=== PATIENT | male | born 1995 | race Caucasian/White ===

== ENCOUNTER 2021-05-28 20:01 | Inpatient (IN) | payer OTHER, SELFPAY ==
[2021-05-28 20:08] VITALS: BP 116/66; PULSE 93; RESP 16; TEMP 36.7; O2SAT 100; BMI 19.5
--- NOTE | 2021-05-28 20:20 | ED_ITS ---
HPI - Psych General Chief Complaint: Psychiatric Symptoms Stated Complaint: SI Time Seen by Provider: 05/28/21 20:20 Source: patient Mode of arrival: ambulatory Limitations: no limitations History of Present Illness HPI Narrative: This is a 25-year-old male with no known medical history presenting to the emergency department via ambulance and a Section 12 for suicidal ideation with attempt to hang himself. Patient was found by his mom and sister at home with a wire tied around his neck, he tells me that he just can not take it anymore. He tells me ?everything I have worked for has been taken away ?, he tells me that COVID has been messing him up. What triggered this today is that patient got a new job in [place], patient resides in [place] and he was unable to get a ride to the new job. He tells me that he has been planning out the suicide attempt for weeks, this is not his 1st attempt, he tells me he had 1 a few years ago. He denies visual, auditory and tactile hallucinations at this time. He tells me he smokes marijuana but denies all other drugs, alcohol and tobacco. He is not currently taking medications. He is not followed by psychiatrist or therapist. He denies homicidal ideation. He has no medical complaints at this time. MD complaint: suicidal ideation, feels depressed and anxiety Onset (ago): week(s) (2) Duration: constant History of same: Yes Relieving factors: none Exacerbating factors: none Context: significant life stressor (COVID, new job ) Associated psychiatric symptoms: depression, suicidal ideation (w/ attempt ) and racing thoughts Associated symptoms: denies other symptoms Treatments prior to arrival: placed on mental health hold (Patient sectioned by N in the community.) If self harm: admits thoughts of self harm, has plan and has acted on plan (tried choking/hanging himself w/ wire) Related Data Allergies Allergy/AdvReac Type Severity Reaction Status Date / Time No Known Allergies Allergy Unverified 01/10/20 16:36 Review of Systems Verdana 4l Review of Systems: Verdana 4d Verdana 4d Constitutional : No Fever, No Chills ENT/Mouth : No Ear Pain, No Nasal Congestion, No sore throat Eyes: No Eye Pain, No Swelling, No Redness Cardiovascular : No Chest Pain, No SOB Respiratory : No Cough, No Sputum, No Dyspnea GastrointestinalGastrointestinal : No Nausea, No Vomiting, No Diarrhea, No Hematochezia, No Melena Genitourinary : No Dysuria, No Urinary Frequency, No Hematuria Musculoskeletal : No Myalgias Skin : No Skin Lesions, No rash Neuro : No Weakness, No Numbness, No Paresthesias, No Dizziness, No Headache Psych : positive Anxiety, positive Depression, positive SI, No HI All other systems reviewed and are negative Yes all other systems are reviewed and are negative [facility] Past Medical History Attestation statement: The following information was validated with the patient. 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 Oriented X3.? No acute distress.?+ patient appears sad, is soft-spoken, and will not make eye contact. Head: Normocephalic, atraumatic, no step-offs or deformities Eyes: Pupils equal, round and reactive to light.? ENT: Pharynx normal.? Neck: Normal inspection.? Neck supple.? CVS: Normal heart rate and rhythm.? Pulses normal.? Respiratory: No respiratory distress.? Breath sounds normal.? Abdomen: Soft and nontender.? Skin: Skin warm and dry.? Normal skin color.? Normal skin turgor.? Extremities: No lower extremity edema.? No calf ttp. 5/5 strength to bilateral upper and lower extremities Back: No midline tenderness, no C-spine tenderness, full range of motion, no CVA tenderness bilaterally Neuro: Oriented X 3.? No motor deficit.? No sensory deficit. Cranial nerves 2- 12 intact. Course Reevaluation(s) Reevaluation #1: CBC within normal limits, no acute electrolyte abnormalities. COVID negative. Ethanol negative. At this time urine toxicology pending. Patient will be placed in physician observation to allow for evaluation by the behavioral health team. At this time patient is, cooperative no acute distress. Will continue to monitor. Time: 21:30 MDM - Psych MDM Narrative Medical decision making narrative: 2012 25 yo m no pmhx presents to ED s/p suicide attempt by choking himself with wires. He was found at by his mom and sister. Tells me he was planning this for weeks. Previous attempt in the past. Is not followed by psychiatrist or therapist. Physical exam benign, no signs of evident trauma to the neck. Plan at this time is to obtain basic labs, COVID, drug screen, BHN consult. Patient will be placed on close observation as patient is high risk. Medical Records Attestation: I reviewed the patient's medical records. Lab Data Attestation: I reviewed the patient's lab results. Result diagrams: 05/28/21 20:44 05/28/21 20:44 Labs: Lab Results 05/28/21 05/28/21 05/28/21 Range/Units 20:44 20:44 20:44 WBC 7.5 (4.8-10.8) X10*3/uL RBC 4.83 (4.60-5.80) X10*6/uL Hgb 14.5 (14.0-18.0) g/dl Hct 44.3 (42.0-52.0) % MCV 91.7 (80.0-98.0) fL MCH 30.0 (27.0-33.0) pg MCHC 32.7 (31.0-36.0) g/dl RDW 12.1 (11.0-16.0) % Plt Count 190 (160-400) X10*3/uL MPV 11.0 (9.4-12.4) fL Immature Gran % (Auto) 0.1 (0.0-0.4) % Neut % (Auto) 69.7 (45-73) % Lymph % (Auto) 23.9 (20-40) % Kendall % (Auto) 4.7 (2-11) % Eos % (Auto) 1.2 (0-4) % Baso % (Auto) 0.4 (0-2) % Lymph # (Auto) 1.8 (1.2-4.9) X10*3/uL Kendall # (Auto) 0.4 (0.1-1.2) X10*3/uL Eos # (Auto) 0.1 (0.0-0.4) X10*3/uL Baso # (Auto) 0.0 (0.0-0.2) X10*3/uL Abs Immat Gran (auto) 0.01 (0.00-0.03) X10*3/uL Absolute Neuts (auto) 5.2 (2.0-8.3) x10*3/uL Absolute Nucleated RBC 0.000 (0.0-0.012) X10*3/uL Nucleated RBC % (auto) 0.0 (0.0-0.2) /100WBC Sodium 141 (135-145) mmol/L Potassium 3.8 (3.3-5.1) mmol/L Chloride 109 H (96-108) mmol/L Carbon Dioxide 26 (22-29) mmol/L Anion Gap 10 L (12-20) BUN 6 L (9-16) mg/dL Creatinine 0.88 (0.5-1.4) mg/dL Estim Creat Clear Calc 117.2 Estimated GFR > 60 Random Glucose 85 (60-115) mg/dL Calcium 9.2 (8.4-10.2) mg/dL Total Bilirubin 0.5 (0.0-1.0) mg/dL AST 16 (5-37) U/L ALT 8 (0-40) U/L Alkaline Phosphatase 36 L (39-117) U/L Total Protein 6.6 (6.5-8.0) g/dL Albumin 4.2 (3.5-5.0) g/dL Ethyl Alcohol mg/dL COVID-19 (GABRIELA) Negative (Negative) COVID-19 Clin Com See Note 05/28/21 Range/Units 20:44 WBC (4.8-10.8) X10*3/uL RBC (4.60-5.80) X10*6/uL Hgb (14.0-18.0) g/dl Hct (42.0-52.0) % MCV (80.0-98.0) fL MCH (27.0-33.0) pg MCHC (31.0-36.0) g/dl RDW (11.0-16.0) % Plt Count (160-400) X10*3/uL MPV (9.4-12.4) fL Immature Gran % (Auto) (0.0-0.4) % Neut % (Auto) (45-73) % Lymph % (Auto) (20-40) % Kendall % (Auto) (2-11) % Eos % (Auto) (0-4) % Baso % (Auto) (0-2) % Lymph # (Auto) (1.2-4.9) X10*3/uL Kendall # (Auto) (0.1-1.2) X10*3/uL Eos # (Auto) (0.0-0.4) X10*3/uL Baso # (Auto) (0.0-0.2) X10*3/uL Abs Immat Gran (auto) (0.00-0.03) X10*3/uL Absolute Neuts (auto) (2.0-8.3) x10*3/uL Absolute Nucleated RBC (0.0-0.012) X10*3/uL Nucleated RBC % (auto) (0.0-0.2) /100WBC Sodium (135-145) mmol/L Potassium (3.3-5.1) mmol/L Chloride (96-108) mmol/L Carbon Dioxide (22-29) mmol/L Anion Gap (12-20) BUN (9-16) mg/dL Creatinine (0.5-1.4) mg/dL Estim Creat Clear Calc Estimated GFR Random Glucose (60-115) mg/dL Calcium (8.4-10.2) mg/dL Total Bilirubin (0.0-1.0) mg/dL AST (5-37) U/L ALT (0-40) U/L Alkaline Phosphatase (39-117) U/L Total Protein (6.5-8.0) g/dL Albumin (3.5-5.0) g/dL Ethyl Alcohol < 10 mg/dL COVID-19 (GABRIELA) (Negative) COVID-19 Clin Com Critical Care Time Critical Care Time Critical Care Time: No Discharge Plan Discharge Clinical Impression: Suicide attempt, Depression Patient Disposition: Still a Patient Instructions: Help Prevent Suicide (ED), Help Prevent Suicide in Older Adults (ED), Suicide Prevention (ED) Additional Instructions: Take your medications as prescribed. If you were prescribed antibiotics today, it is important that you take your medication to their entirety, do not skip any doses, do not finish them early. Follow-up with your primary care provider this week. Return to the emergency department with new or worsening symptoms. In case of emergency call 911
[2021-05-28 20:51] LABS: MANUAL DIFF FLAG NO
[2021-05-28 20:52] LABS: Basophils Percent Auto 0.4 % (0-2); Eosinophils Absolute Auto 0.1 X10*3/uL (0.0-0.4); Eosinophils Percent Auto 1.2 % (0-4); Hematocrit 44.3 % (42.0-52.0); Hemoglobin 14.5 g/dl (14.0-18.0); Imm Gran Abs Auto 0.01 X10*3/uL (0.00-0.03); Imm Gran Pct Auto 0.1 % (0.0-0.4); Lymphocytes Absolute Auto 1.8 X10*3/uL (1.2-4.9); Lymphocytes Percent Auto 23.9 % (20-40); Mean Corpuscular HGB Conc 32.7 g/dl (31.0-36.0); Mean Corpuscular Volume 91.7 fL (80.0-98.0); Monocytes Absolute Auto 0.4 X10*3/uL (0.1-1.2); Monocytes Percent Auto 4.7 % (2-11); Neutrophils Absolute Auto 5.2 x10*3/uL (2.0-8.3); Neutrophils Percent Auto 69.7 % (45-73); Platelet Count 190 X10*3/uL (160-400); Red Blood Count 4.83 X10*6/uL (4.60-5.80); Red Cell Distribution Width 12.1 % (11.0-16.0); White Blood Count 7.5 X10*3/uL (4.8-10.8)
[2021-05-28 21:08] LABS: COVID-19 Test Negative (Negative); Ethanol < 10 mg/dL
[2021-05-28 21:12] LABS: Alanine Aminotransferase 8 U/L (0-40); Albumin Level 4.2 g/dL (3.5-5.0); Alkaline Phosphatase 36 U/L (39-117); Anion Gap 10 (12-20); Aspartate Amino Transferase 16 U/L (5-37); Bilirubin Total 0.5 mg/dL (0.0-1.0); Blood Urea Nitrogen 6 mg/dL (9-16); Calcium 9.2 mg/dL (8.4-10.2); Carbon Dioxide 26 mmol/L (22-29); Chloride 109 mmol/L (96-108); Creatinine Clr Calc Pharmacy 117.2; Estimated Glomerular Filt Rate > 60; Glucose Random 85 mg/dL (60-115); Potassium 3.8 mmol/L (3.3-5.1); Sodium 141 mmol/L (135-145); Total Protein 6.6 g/dL (6.5-8.0)
--- NOTE | 2021-05-28 21:37 | MHC.CARE ---
AYDIN called reporting that pt was seen in the community and is a bedsearch
--- NOTE | 2021-05-29 | ECG_ITS ---
Test Reason : MEDCLEARANCE Blood Pressure : / mmHG Vent. Rate : 052 BPM Atrial Rate : 052 BPM P-R Int : 134 ms QRS Dur : 110 ms QT Int : 412 ms P-R-T Axes : 058 091 078 degrees QTc Int : 383 ms Sinus bradycardia Rightward axis Early repolarization Borderline ECG When compared with ECG of 24-FEB-2008 11:13, No significant changes seen Referred By: Peyton Lott Electronically Signed By:MEGAN MARTINES
--- NOTE | 2021-05-29 05:45 | PC.NURSE ---
Patient slept through the night, no distress observed/reported, behavior appropriate, mood depressed, denied SI and SH at this time, patient is currently not on any medication, worried about his relationship with his girlfriend, patient was screened by AYDIN, disposition section 12 inpatient bed search, VSS, will continue to monitor.
[2021-05-29 06:53] VITALS: RESP 20
--- NOTE | 2021-05-29 07:19 | PC.NURSE ---
patient appears to remain asleep at present respirations are even and unlabored, patient appears in no distress
[2021-05-29 13:02] LABS: COVID-19 Test Negative (Negative); IDNOW Serial# 9DD0AD1C
--- NOTE | 2021-05-29 15:43 | PC.NURSE ---
Attempted to give report. Per jordyn nurses are involved in patient care. Plan at this time is to call back at 1600.
--- NOTE | 2021-05-29 16:02 | PC.NURSE ---
Attempted to give report. Staff unable to take report due to being involved in patient care.
--- NOTE | 2021-05-29 16:34 | PC.NURSE ---
Report given to Lester GRIMES
--- NOTE | 2021-05-29 18:05 | P.HPPS_ITS ---
HPI Date of Service: 05/29/21 Chief Complaint: suicide attempt Sources of Information: patient interviewed, chart reviewed and crisis/core team assessment reviewed HPI Subjective Notes: [place] Warning, Conditional Voluntary and 3 Day Healthcare Proxy: No Guardianship: No Medical Problems Affecting Mental Status: No Narrative: Zak is a 25 y.o. male who carries a dx of ADHD, r/o ASD, and MDD recurrent. He presented to [facility] ED on 05/28/21 via ambulance on a Section 12a due to SI and s/p SA via asphyxiation. Per ED note, pt was found by his mom and sister at home with a wire tied around his neck. 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 ED provider had documented that pt had been planning out the SA for weeks, however pt adamantly denies saying this and says it was impulsive. No current psych treatment or medication. Utox positive for cannabis.? Per Jean Carlos dow on 05/28/21, pt was evaluated by crisis mobile unit, found in the back seat of his mom?s car crying. He identified precipitating factors as feeling like a failure due to losing his job (recently hired by [employer] but unable to complete training due to not having reliable transportation). Pt disclosed hearing voices for the last month and hearing the word all the time. lead software engineer spoke with pt?s mom, who confirmed pt has been hearing voices and self isolating.? I evaluated the pt this evening and upon interview he reports long hx of depression since adolescence. Pt says his depression comes and goes and that it is ?more a seasonal thing.? Episodes of depression can last from ?a couple days, maybe a week.? Has noticed current sx of depression started about a month ago, stating ?life has just been hard? and ?its been hard to find work.? He is unvaccinated and has limited work experience, which makes it difficult to obtain gainful employment. Sx of depression include not wanting to get out of bed. Says his appetite is good and he sleeps 9-10 hours at night. Daytime energy is low, ?some days even though I slept I?m still tired.? Pt says he struggles with some anxiety, ?I tend to overthink a lot? and he feels overwhelmed. Denies panic attacks. Denies anger. Currently denies SI and says ?I dont wanna .? States his suicidal ideation is a ?feeling that randomly pops up out of nowhere? and he feels he hit ?rock bottom? and was ?in a dark place? prior to crisis eval. For his most recent SA, pt states he pulled a wire around his neck ?to the extent that it was constricting my breathing a little? and his mom walked in and stopped him. Denies self harming behaviors. Says ?I know what I did was wrong.? Pt is currently denying psychotic sx. No hx of manic or hypomanic episodes endorsed.? I spoke with pt?s mom who reports pt has a hx of ADHD and states she believes pt is on the autism spectrum. Says at age 20 pt?s PCP also inquired if he was diagnosed with autism, however he has not had formal testing and has not hx of special education services. His mom reports she first noticed pt?s depression in adolescence and says ?his dad has been in and out of his life, he went to senior living a couple times when he was growing up, that?s jr when things started with the counseling and stuff.? Says pt has lost ?a lot of weight? in the past year, she worries about intentional restricting and says pt was overweight in childhood. States he can be verbally aggressive but denies physical aggression or property destruction.? She confirms he does sleep but will go to bed late. Has lack of daytime structure, stays in his room and plays xbox. Says he is still dependent on her and his mom has to help him with appointments, talking on the phone, and organizational tasks. Pt does not like going into stores or talking with people, he is not social at family events. Says ?he wont even buy his own clothes.? Hy giene is adequate. Per mom, yesterday pt missed work because he didnt have a ride and since it is a training week, ?if he misses that?s its and it was his dream job. That?s really what set him off.? She denies pt having hx of self harm. Says pt disclosed to her that in the past month he has been hearing ?the word ? in his head. Otherwise, denies positive sx of psychosis.? Past Psychiatric History: -Per chart, pt was diagnosed with ADHD and Agoraphobia in childhood -Hx of OP therapy when he was in the tenth grade. -Pt reports hx of previous SI at age 19 or 20, had a plan to hang himself and says ?it randomly hit me, what the hell am I doing?? Also reports hx of suicide attempt 5-6 yrs ago by ?overdrinking,? tried to drink himself to , wanted to ?see how far I could really take it.? -Past med trials: adderall Medical Evaluation Reviewed: Yes [facility] Narrative: -Hx of GERD Family History: -Denies Social History: -Pt lives at home with mother (unemployed) and sister (age 9 or 10). Supports: older brother in [place], also says he has one friend he talks to. Limited social supports. Does not talk to bio dad (was in/out of senior living growing up). -Dropped out of high school senior yr due to being short credit, says he ?fooled around? and his grades ?dropped dramatically,? obtained his GED. 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 Says prior to the pandemic he worked for a year in [employer]. States he was hoping to use the money from this job to pay for college and he would like to study psychology. Interests include drawing, music, and working on cars. 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 -Cannabis: daily use, has his own marijuana plant Trauma History: -Per pt?s mom, his dad was in/ out of senior living growing up. Pt started OP therapy in high school, says he ?felt like I never fit in? and ?everybody was always just pointing and laughing at me,? says he was an ?outkast.? Diagnostics Vital Signs (24Hr): Vital Signs - 24 hr 05/28/21 20:08 05/29/21 06:53 Temperature 98.1 F Pulse Rate 93 Respiratory Rate 16 20 Blood Pressure 116/66 Pulse Oximetry 100 BMI result Body Mass Index 19.5 Labs Results: 05/28/21 20:44 05/28/21 20:44 Labs: Laboratory Results - last 48 hr 05/28/21 05/28/21 05/28/21 20:44 20:44 20:44 WBC 7.5 RBC 4.83 Hgb 14.5 Hct 44.3 MCV 91.7 MCH 30.0 MCHC 32.7 RDW 12.1 Plt Count 190 MPV 11.0 Immature Gran % (Auto) 0.1 Neut % (Auto) 69.7 Lymph % (Auto) 23.9 Brule % (Auto) 4.7 Eos % (Auto) 1.2 Baso % (Auto) 0.4 Lymph # (Auto) 1.8 Brule # (Auto) 0.4 Eos # (Auto) 0.1 Baso # (Auto) 0.0 Abs Immat Gran (auto) 0.01 Absolute Neuts (auto) 5.2 Absolute Nucleated RBC 0.000 Nucleated RBC % (auto) 0.0 Sodium 141 Potassium 3.8 Chloride 109 H Carbon Dioxide 26 Anion Gap 10 L BUN 6 L Creatinine 0.88 Estim Creat Clear Calc 117.2 Estimated GFR > 60 Random Glucose 85 Calcium 9.2 Total Bilirubin 0.5 AST 16 ALT 8 Alkaline Phosphatase 36 L Total Protein 6.6 Albumin 4.2 Ethyl Alcohol COVID-19 (GABRIELA) Negative COVID-19 [employer] Com See Note 05/28/21 05/29/21 20:44 12:36 WBC RBC Hgb Hct MCV MCH MCHC RDW Plt Count MPV Immature Gran % (Auto) Neut % (Auto) Lymph % (Auto) Brule % (Auto) Eos % (Auto) Baso % (Auto) Lymph # (Auto) Brule # (Auto) Eos # (Auto) Baso # (Auto) Abs Immat Gran (auto) Absolute Neuts (auto) Absolute Nucleated RBC Nucleated RBC % (auto) Sodium Potassium Chloride Carbon Dioxide Anion Gap BUN Creatinine Estim Creat Clear Calc Estimated GFR Random Glucose Calcium Total Bilirubin AST ALT Alkaline Phosphatase Total Protein Albumin Ethyl Alcohol < 10 COVID-19 (GABRIELA) Negative COVID-19 Clin Com See Note Meds/Allergies Meds Home Medications Acetaminophen (Acetaminophen 325 Mg Tablet) 650 mg PO Q6H PRN PRN Reason: Headache/Pain Mild Scale (1-3) Al Hydroxide/Mg Hydroxide (Magnesium Hydrox/Alum Hydrox 30 Ml Oral.Susp) 30 ml PO Q6H PRN PRN Reason: Heartburn/Nausea Hydroxyzine HCl (Hydroxyzine Hcl 25 Mg Tablet) 25 mg PO BEDTIME PRN PRN Reason: Anxiety Magnesium Hydroxide (Milk Of Magnesia 30 Ml Oral.Susp) 30 ml PO DAILY PRN PRN Reason: Constipation Trazodone HCl (Trazodone Hcl 50 Mg Tablet) 50 mg PO BEDTIME PRN PRN Reason: Insomnia Allergies Allergies Allergy/AdvReac Type Severity Reaction Status Date / Time No Known Allergies Allergy Unverified 01/10/20 16:36 Mental Status Exam Mental Status Exam Narrative: A&O. Found lying down in bed in hospital attire, not malodorous, glasses, thin body habitus. Poor eye contact, attentive. No Tics or Tremors. No abnormal involuntary movements. Calm, cooperative, engaged, however pt appears to be minimizing sx and is not a reliable political reporter. Non-pressured speech, spontaneous with regular rate and rhythm, normal volume and prosody. No prolonged speech latency or dysarthria. Mood is ?depressed,? affect is anxious, embarrassed. Currently denies SI/SIB/HI upon inquiry. Currently denies A/VH or delusional thought content. Thoughts are at times evasive but overall organized and coherent. No known cognitive or memory impairment. Insight/ Judgment limited but adequate. Assessment & Plan Assessment & Plan (1) MDD (major depressive disorder), recurrent, severe, with psychosis: Status: Acute Code(s): F33.3 - Major depressive disorder, recurrent, severe with psychotic symptoms Plan Zak is a 25 y.o. male who carries a dx of ADHD, r/o ASD, and MDD recurrent. He presented to [facility] ED on 05/28/21 via ambulance on a Section 12a due to SI and s/p SA via asphyxiation. Has hx of previous SA, depression, and suicidal ideation. No current OP psych sx. Denies hx of IPLOC, PHP, or CCS. No alcohol use, substance use positive for daily cannabis. Pt had reported AH x one month, hearing the word . Plan: Pt is currently refusing medication trial for depression, says ?I dont condone in medication.? Reports when he was younger he took adderall and ?I didnt like it all.? Pt is also apprehensive about re-starting OP therapy, says ?I dont feel comfortable talking about my problems with people.? He is currently denying psychotic sx, however per crisis eval pt had disclosed AH x one month. Pt's mom would like pt to obtain testing for autism spectrum disorder in OP setting. Will continue engagement with pt and monitor for psychotic sx. Monitor response to medications. Monitor for safety in the milieu. Discharge on stabilization. Patient seen. Chart reviewed. Discussed with team. Obtain collateral contact info?as needed Patient educated on: medication risk/benefits and therapeutic strategies Informed Consent: understands Reason for continued inpatient stay Substantial Risk for: harm to self, rapid decompensation and med/psych decompensation
--- NOTE | 2021-05-29 18:50 | PC.ADMIT ---
PT admitted to unit from [facility] with a diagnosis of unspecified schizophrenia and other psychotic disorder on a CV after attempting to hang himself at home. PT reports that his mother found him while he was making his attempt and that he feels ashamed for attempting to harm himself. PT is calm and cooperative with admission process, guarded and tearful during conversation. Per crisis eval pt reported SI and AH in the last month and that he was hearing the word everywhere. PT states he has a supportive family but is currently angry with them and does not want anyone other than his brother to have information about his stay here. PT reports he has no providers and does not take any medications. PT denies previous psychiatric admissions. PT is covid negative. 15 minute safety checks initiated for safety.
[2021-05-29 18:55] VITALS: BP 133/73; PULSE 62; RESP 16; TEMP 36.5; O2SAT 98
[2021-05-30 08:00] VITALS: BP 111/58; PULSE 60; RESP 15; TEMP 36.5; O2SAT 99
--- NOTE | 2021-05-30 08:01 | P.PNPSI_ITS ---
Subjective Subjective Reason For Visit: suicide attempt Diagnostics Vital Signs (24Hr): Vital Signs - 24 hr 05/29/21 18:55 Temperature 97.7 F Pulse Rate 62 Respiratory Rate 16 Blood Pressure 133/73 Pulse Oximetry 98 BMI result Verdana 4 Body Mass Index Verdana 4 19.5 Verdana 4 Verdana 4 Labs Results: 05/28/21 20:44 05/28/21 20:44 Labs: Laboratory Results - last 48 hr 05/28/21 05/28/21 05/28/21 20:44 20:44 20:44 WBC 7.5 RBC 4.83 Hgb 14.5 Hct 44.3 MCV 91.7 MCH 30.0 MCHC 32.7 RDW 12.1 Plt Count 190 MPV 11.0 Immature Gran % (Auto) 0.1 Neut % (Auto) 69.7 Lymph % (Auto) 23.9 [place] % (Auto) 4.7 Eos % (Auto) 1.2 Baso % (Auto) 0.4 Lymph # (Auto) 1.8 [place] # (Auto) 0.4 Eos # (Auto) 0.1 Baso # (Auto) 0.0 Abs Immat Gran (auto) 0.01 Absolute Neuts (auto) 5.2 Absolute Nucleated RBC 0.000 Nucleated RBC % (auto) 0.0 Sodium 141 Potassium 3.8 Chloride 109 H Carbon Dioxide 26 Anion Gap 10 L BUN 6 L Creatinine 0.88 Estim Creat Clear Calc 117.2 Estimated GFR > 60 Random Glucose 85 Calcium 9.2 Total Bilirubin 0.5 AST 16 ALT 8 Alkaline Phosphatase 36 L Total Protein 6.6 Albumin 4.2 Ethyl Alcohol COVID-19 ([facility]) Negative COVID-19 Clin Com See Note 05/28/21 05/29/21 20:44 12:36 WBC RBC Hgb Hct MCV MCH MCHC RDW Plt Count MPV Immature Gran % (Auto) Neut % (Auto) Lymph % (Auto) [place] % (Auto) Eos % (Auto) Baso % (Auto) Lymph # (Auto) [place] # (Auto) Eos # (Auto) Baso # (Auto) Abs Immat Gran (auto) Absolute Neuts (auto) Absolute Nucleated RBC Nucleated RBC % (auto) Sodium Potassium Chloride Carbon Dioxide Anion Gap BUN Creatinine Estim Creat Clear Calc Estimated GFR Random Glucose Calcium Total Bilirubin AST ALT Alkaline Phosphatase Total Protein Albumin Ethyl Alcohol < 10 COVID-19 ([facility]ELA) Negative COVID-19 Clin Com See Note Medications Medications Current Medications Acetaminophen (Acetaminophen 325 Mg Tablet) 650 mg PO Q6H PRN PRN Reason: Headache/Pain Mild Scale (1-3) Al Hydroxide/Mg Hydroxide (Magnesium Hydrox/Alum Hydrox 30 Ml Oral.Susp) 30 ml PO Q6H PRN PRN Reason: Heartburn/Nausea Hydroxyzine HCl (Hydroxyzine Hcl 25 Mg Tablet) 25 mg PO BEDTIME PRN PRN Reason: Anxiety Magnesium Hydroxide (Milk Of Magnesia 30 Ml Oral.Susp) 30 ml PO DAILY PRN PRN Reason: Constipation Trazodone HCl (Trazodone Hcl 50 Mg Tablet) 50 mg PO BEDTIME PRN PRN Reason: Insomnia Allergies Allergies Allergy/AdvReac Type Severity Reaction Status Date / Time No Known Allergies Allergy Unverified 01/10/20 16:36 Assessment & Plan I spent minutes with the patient and/or on the patient floor today, greater than?50% of which was spent counseling/coordinating care.
--- NOTE | 2021-05-30 17:27 | P.HPPS_ITS ---
HPI Date of Service: 05/30/21 Chief Complaint: suicide attempt Sources of Information: patient interviewed, chart reviewed and crisis/core team assessment reviewed HPI Subjective Notes: [place] Warning, Conditional Voluntary and 3 Day Healthcare Proxy: No Guardianship: No Medical Problems Affecting Mental Status: No Narrative: 25 single male was brought to ED after attempted hanging . His cousin contacted crisis. Pt reports he has been depressed > 1 year after he lost his job in Senior [employer] in 2019 related to COVID. Unable to get another job due tue to vaccine refusal. He states he started to notice talk of in the media/people but clarifies he did not experience AH. He did not want to come to hospital and is upset with family for sending him here despite his statements that he had no intent or SI after the attempted cord tying round neck. I dont want to talk to my mom or anyone . He states it was an impulse. Continues to refuse vaccine or meds. Substance abuse: Some ETOH use but regular THC use. Denies other drug use. Past Psychiatric History: -Per chart, pt was diagnosed with ADHD and Agoraphobia in childhood. Adderall made him feel weird. -Hx of OP therapy when he was in the tenth grade. -Pt reports hx of previous SI at age 19 or 20, had a plan to hang himself and says ?it randomly hit me, what the hell am I doing?? Also reports hx of suicide attempt 5-6 yrs ago by ?overdrinking,? tried to drink himself to , wanted to ?see how far I could really take it.? -Past med trials: adderall Medical Evaluation Reviewed: Yes PMFSH Family History: -Denies Social History: -Pt lives at home with mother (unemployed) and sister (age 7 or 8). Supports: older brother in [place], also says he has one friend he talks to. Limited social supports. Does not talk to bio dad (was in/out of longterm growing up). -Dropped out of high school senior yr due to being short credit, says he ?fooled around? and his grades ?dropped dramatically,? obtained his GED. 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 Says prior to the pa ndemic he worked for a year in [employer] (formerly [employer]). States he was hoping to use the money from this job to pay for college and he would like to study psychology. Interests include drawing, music, and working on cars. Substance History: Regular THC use. Some ETOH use Trauma History: -Per pt?s mom, his dad was in/ out of longterm growing up. Pt started OP therapy in high school, says he ?felt like I never fit in? and ?everybody was always just pointing and laughing at me,? says he was an ?outkast.? Diagnostics Vital Signs (24Hr): Vital Signs - 24 hr 05/29/21 18:55 05/30/21 08:00 Temperature 97.7 F 97.7 F Pulse Rate 62 60 Respiratory Rate 16 15 Blood Pressure 133/73 111/58 L Pulse Oximetry 98 99 BMI result Verdana 4 Body Mass Index Verdana 4 19.5 [place] 4 Verdana 4 Labs Results: 05/28/21 20:44 05/28/21 20:44 Labs: Laboratory Results - last 48 hr 05/28/21 05/28/21 05/28/21 20:44 20:44 20:44 WBC 7.5 RBC 4.83 Hgb 14.5 Hct 44.3 MCV 91.7 MCH 30.0 MCHC 32.7 RDW 12.1 Plt Count 190 MPV 11.0 Immature Gran % (Auto) 0.1 Neut % (Auto) 69.7 Lymph % (Auto) 23.9 [place] % (Auto) 4.7 Eos % (Auto) 1.2 Baso % (Auto) 0.4 Lymph # (Auto) 1.8 [place] # (Auto) 0.4 Eos # (Auto) 0.1 Baso # (Auto) 0.0 Abs Immat Gran (auto) 0.01 Absolute Neuts (auto) 5.2 Absolute Nucleated RBC 0.000 Nucleated RBC % (auto) 0.0 Sodium 141 Potassium 3.8 Chloride 109 H Carbon Dioxide 26 Anion Gap 10 L BUN 6 L Creatinine 0.88 Estim Creat Clear Calc 117.2 Estimated GFR > 60 Random Glucose 85 Calcium 9.2 Total Bilirubin 0.5 AST 16 ALT 8 Alkaline Phosphatase 36 L Total Protein 6.6 Albumin 4.2 Ethyl Alcohol COVID-19 ([facility]ELA) Negative COVID-19 Clin Com See Note 05/28/21 05/29/21 20:44 12:36 WBC RBC Hgb Hct MCV MCH MCHC RDW Plt Count MPV Immature Gran % (Auto) Neut % (Auto) Lymph % (Auto) [place] % (Auto) Eos % (Auto) Baso % (Auto) Lymph # (Auto) [place] # (Auto) Eos # (Auto) Baso # (Auto) Abs Immat Gran (auto) Absolute Neuts (auto) Absolute Nucleated RBC Nucleated RBC % (auto) Sodium Potassium Chloride Carbon Dioxide Anion Gap BUN Creatinine Estim Creat Clear Calc Estimated GFR Random Glucose Calcium Total Bilirubin AST ALT Alkaline Phosphatase Total Protein Albumin Ethyl Alcohol < 10 COVID-19 (GABRIELA) Negative COVID-19 Clin Com See Note Meds/Allergies Meds Home Medications Acetaminophen (Acetaminophen 325 Mg Tablet) 650 mg PO Q6H PRN PRN Reason: Headache/Pain Mild Scale (1-3) Al Hydroxide/Mg Hydroxide (Magnesium Hydrox/Alum Hydrox 30 Ml Oral.Susp) 30 ml PO Q6H PRN PRN Reason: Heartburn/Nausea Hydroxyzine HCl (Hydroxyzine Hcl 25 Mg Tablet) 25 mg PO BEDTIME PRN PRN Reason: Anxiety Magnesium Hydroxide (Milk Of Magnesia 30 Ml Oral.Susp) 30 ml PO DAILY PRN PRN Reason: Constipation Trazodone HCl (Trazodone Hcl 50 Mg Tablet) 50 mg PO BEDTIME PRN PRN Reason: Insomnia Allergies Allergies Allergy/AdvReac Type Severity Reaction Status Date / Time No Known Allergies Allergy Unverified 01/10/20 16:36 Mental Status Exam Mental Status Exam Patient Appearance: Well Grooomed Patient Orientation: Person, Place, Time and Situation Level of Consciousness: Awake Patient Behavior: Appropriate and Good Eye Contact Mood Description: Calm, Depressed and Sad Affect Description: Calm and Depressed Ability to Follow Directions: Good Speech Pattern: Clear Memory Description: Intact Hallucinations: None Delusions: Not Present Thought Content: positive for Intact and positive for Suicidal Ideation Depressive Symptoms: Increased Anxiety Judgement: Poor Assessment & Plan Assessment & Plan (1) MDD (major depressive disorder), recurrent, severe, with psychosis: Status: Acute Code(s): F33.3 - Major depressive disorder, recurrent, severe with psychotic symptoms (2) Suicide attempt: Status: Acute Code(s): T14.91XA - Suicide attempt, initial encounter Plan cv but put in 3 day notice. Offered SSRI but refused Collateral from family Clarify whether AH or not Refer to OP therapy at [facility] 5 days Patient educated on: diagnosis Informed Consent: understands Reason for continued inpatient stay Substantial Risk for: harm to self
[2021-05-30 22:11] VITALS: BP 128/72; PULSE 74; RESP 16; TEMP 36.6; O2SAT 99
--- NOTE | 2021-05-31 03:42 | P.PNPSI_ITS ---
Subjective Subjective Date of Service: 05/31/21 Reason For Visit: suicide attempt Subjective Notes: Conditional Voluntary and 3 Day Healthcare Proxy: No Guardianship: No Medical Problems Affecting Mental Status: No Interim History: Mood much improved. Socializing in milieu. Pleased with brothers visit He understands me 100% Still mad at his mother. Wants to spend a week with brother after DC. Refuses meds. No SI. Medication Compliance: No Side effects from medications: No Attending Groups: No Review of Systems Acute medical concerns: No Medical Review of Systems: unchanged Review of Systems Review of Systems Yes all other systems are reviewed and are negative Mental Status Exam Mental Status Exam Narrative: Pleasant. Depressed mood but minimizes. Denies SI. Insists he is safe. No AH. Wants DC. Refuses meds Patient Appearance: Well Grooomed Patient Orientation: Person, Place, Time and Situation Level of Consciousness: Awake Patient Behavior: Appropriate and Good Eye Contact Mood Description: Calm, Depressed and Sad Affect Description: Calm and Depressed Ability to Follow Directions: Good Speech Pattern: Clear Memory Description: Intact Diagnostics Vital Signs (24Hr): Vital Signs - 24 hr 05/30/21 08:00 05/30/21 22:11 Temperature 97.7 F 98 F Pulse Rate 60 74 Respiratory Rate 15 16 Blood Pressure 111/58 L 128/72 Pulse Oximetry 99 99 BMI result Verdana 4 Body Mass Index Verdana 4 19.5 Verd[place] 4 Verdana 4 Labs Results: 05/28/21 20:44 05/28/21 20:44 Labs: Laboratory Results - last 48 hr 05/29/21 12:36 COVID-19 (GABRIELA) Negative COVID-19 Clin Com See Note Medications Medications Current Medications Acetaminophen (Acetaminophen 325 Mg Tablet) 650 mg PO Q6H PRN PRN Reason: Headache/Pain Mild Scale (1-3) Al Hydroxide/Mg Hydroxide (Magnesium Hydrox/Alum Hydrox 30 Ml Oral.Susp) 30 ml PO Q6H PRN PRN Reason: Heartburn/Nausea Hydroxyzine HCl (Hydroxyzine Hcl 25 Mg Tablet) 25 mg PO BEDTIME PRN PRN Reason: Anxiety Magnesium Hydroxide (Milk Of Magnesia 30 Ml Oral.Susp) 30 ml PO DAILY PRN PRN Reason: Constipation Trazodone HCl (Trazodone Hcl 50 Mg Tablet) 50 mg PO BEDTIME PRN PRN Reason: Insomnia Allergies Allergies Allergy/AdvReac Type Severity Reaction Status Date / Time No Known Allergies Allergy Unverified 01/10/20 16:36 Assessment & Plan Assessment & Plan (1) MDD (major depressive disorder), recurrent, severe, with psychosis: Status: Acute Code(s): F33.3 - Major depressive disorder, recurrent, severe with psychotic symptoms (2) Suicide attempt: Status: Acute Code(s): T14.91XA - Suicide attempt, initial encounter Plan cv but put in 3 day notice. Offered SSRI but refused Collateral from family Clarify whether AH or not Refer to OP therapy at [facility] 5 days 05/31: Ct Rx plan. SW to contact family I spent minutes with the patient and/or on the patient floor today, greater than?50% of which was spent counseling/coordinating care. Reason for contiued inpatient stay Substantial Risk for: harm to self
[2021-05-31 06:00] VITALS: BP 111/63; PULSE 56; RESP 16; TEMP 36.6; O2SAT 100
[2021-05-31 20:48] VITALS: BP 126/70; PULSE 74; RESP 18; TEMP 36.6; O2SAT 98
[2021-06-01 09:00] VITALS: BP 115/67; PULSE 73; RESP 16; TEMP 36.8; O2SAT 99
--- NOTE | 2021-06-01 12:27 | P.PNPSI_ITS ---
Subjective Subjective Date of Service: 06/01/21 Reason For Visit: suicide attempt Interim History: pt found walking the [facility] conversing with staff. appears bright, full affect, energetic. comes to meet with MD in interview room. states he is regretful of his actions that led to hospitalization and he is frustrated he was coerced into coming into the hospital, as he was attempting self-reflection on his behavior and felt that he was safe after his mother found him and could manage himself safely at that point. denies any safety concerns, does state he is consciously attempting to act happy here because so many of his peers appear unhappy and by lifting the mood of the unit in general he lifts his own mood. he states he has realized here that he is stronger than he'd thought and can reach his goals if he puts his mind to it. of his mood, he states, i honestly feel like a ray of sunshine. denies SI/HI/AVH, or h/o AVH. reports he was not having AH of the word [employer] HEL[employer], but rather any time someone said the word it seemed to stand out more to him, to jump out at him. he is interested in discharge [facility] and is not interested in medications or therapy. per staff, feeling less lonely here. SI is less. signed a 3-day notice. Mental Status Exam Mental Status Exam Narrative: Pleasant. denies SI/HI/AVH. mood i honestly feel like a ray of sunshine. Patient Appearance: Well Grooomed Patient Orientation: Person, Place, Time and Situation Level of Consciousness: Awake Patient Behavior: Appropriate and Good Eye Contact Affect Description: Happy Ability to Follow Directions: Good Speech Pattern: Clear Memory Description: Intact Hallucinations: None Delusions: Not Present Thought Process: Goal Oriented and Linear Thought Content: positive for Intact Diagnostics Vital Signs (24Hr): Vital Signs - 24 hr 05/31/21 20:48 Temperature 97.9 F Pulse Rate 74 Respiratory Rate 18 Blood Pressure 126/70 Pulse Oximetry 98 BMI result Verdana 4 Body Mass Index Verdana 4 19.5 Verdana 4 Verdana 4 Labs Results: 05/28/21 20:44 05/28/21 20:44 Medications Medications Current Medications Acetaminophen (Acetaminophen 325 Mg Tablet) 650 mg PO Q6H PRN PRN Reason: Headache/Pain Mild Scale (1-3) Al Hydroxide/Mg Hydroxide (Magnesium Hydrox/Alum Hydrox 30 Ml Oral.Susp) 30 ml PO Q6H PRN PRN Reason: Heartburn/Nausea Hydroxyzine HCl (Hydroxyzine Hcl 25 Mg Tablet) 25 mg PO BEDTIME PRN PRN Reason: Anxiety Magnesium Hydroxide (Milk Of Magnesia 30 Ml Oral.Susp) 30 ml PO DAILY PRN PRN Reason: Constipation Trazodone HCl (Trazodone Hcl 50 Mg Tablet) 50 mg PO BEDTIME PRN PRN Reason: Insomnia Allergies Allergies Allergy/AdvReac Type Severity Reaction Status Date / Time No Known Allergies Allergy Unverified 01/10/20 16:36 Assessment & Plan Assessment & Plan (1) MDD (major depressive disorder), recurrent, severe, with psychosis: Status: Acute Code(s): F33.3 - Major depressive disorder, recurrent, severe with psychotic symptoms (2) Suicide attempt: Status: Acute Code(s): T14.91XA - Suicide attempt, initial encounter Plan cv but put in 3 day notice. Offered SSRI but refused Refer to OP therapy at [facility] 5 days 05/31: Ct Rx plan. SW to contact family. 06/01: appears happy, asking for DC, denying any Sx or problems. I spent minutes with the patient and/or on the patient floor today, greater than?50% of which was spent counseling/coordinating care. Reason for contiued inpatient stay Substantial Risk for: harm to self
[2021-06-01 14:22] VITALS: BMI 19.5
[2021-06-01 20:50] VITALS: BP 114/76; PULSE 108; RESP 18; TEMP 36.2; O2SAT 96
[2021-06-02 09:00] VITALS: BP 107/64; PULSE 62; RESP 18; TEMP 36.4; O2SAT 100
--- NOTE | 2021-06-02 17:19 | HO.PSYCHPN ---
Subjective Subjective Date of Service: 06/02/21 Reason For Visit: suicide attempt Interim History: Patient seen and discussed with team. Patient evaluated this evening and upon interview pt reports his mood is a big shining ray of sunshine. Says his depression is getting better. Had a visit from his aunt and brother visit today. Discussed his reports of hearing the word in order to assess for ideations of reference. Says at one point I did fear something was going to happen to me and then his friends would say something like 'im not gonna let you ,' and that puts you in state of mind i.e. thinking about . Says he and his friends are spiritual people, and he believes that the more you think about something, the more you manifest it into your life, they would try to get me out of that state of mind but have no choice but to bring up that subject and keep me in that state of mind. He also reports listening to music and in one of things songs that I listen to the rapper goes and he talks about overdose and before he starts crossing streets he closes his eyes to see if life is real cause a car would start honking if it was real life. Says this would jr scare me and I like to think that certain songs really do speak to the consumer. Says his sleep is good. Denies depression. 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 Says he plans to stay sober from cannabis. In the milieu, patient is safe and appropriate in behavior. Denies SI/SIB/HI upon inquiry. Denies irritability or assaultive ideation. Says he feels safe. Medication Compliance: Yes Side effects from medications: No Attending Groups: Yes Review of Systems Acute medical concerns: No Medical Review of Systems: unchanged Mental Status Exam Mental Status Exam Narrative: A&O. In casual attire, good hygiene, glasses (broken), not malodorous. Poor eye contact, attentive. No Tics or Tremors. No abnormal involuntary movements. Calm, cooperative, engaged. Non-pressured speech, spontaneous with regular rate and rhythm, normal volume and prosody. No prolonged speech latency or dysarthria. Mood is ?better,? affect is euthymic. Currently denies SI/SIB/HI upon inquiry. Currently denies A/VH or delusional thought content. Thoughts are esoteric and somewhat bizarre, suspicion for ideations of reference but pt is not bothered by thoughts and denies thinking about anymore, says he feels safe. No known cognitive or memory impairment. Insight/ Judgment adequate. Diagnostics Vital Signs (24Hr): Vital Signs - 24 hr 06/01/21 20:50 06/02/21 09:00 Temperature 97.2 F 97.6 F Pulse Rate 108 H 62 Respiratory Rate 18 18 Blood Pressure 114/76 107/64 Pulse Oximetry 96 100 BMI result Body Mass Index 19.5 Labs Results: 05/28/21 20:44 05/28/21 20:44 Medications Medications Current Medications Acetaminophen (Acetaminophen 325 Mg Tablet) 650 mg PO Q6H PRN PRN Reason: Headache/Pain Mild Scale (1-3) Al Hydroxide/Mg Hydroxide (Magnesium Hydrox/Alum Hydrox 30 Ml Oral.Susp) 30 ml PO Q6H PRN PRN Reason: Heartburn/Nausea Hydroxyzine HCl (Hydroxyzine Hcl 25 Mg Tablet) 25 mg PO BEDTIME PRN PRN Reason: Anxiety Magnesium Hydroxide (Milk Of Magnesia 30 Ml Oral.Susp) 30 ml PO DAILY PRN PRN Reason: Constipation Trazodone HCl (Trazodone Hcl 50 Mg Tablet) 50 mg PO BEDTIME PRN PRN Reason: Insomnia Allergies Allergies Allergy/AdvReac Type Severity Reaction Status Date / Time No Known Allergies Allergy Unverified 01/10/20 16:36 Assessment & Plan Assessment & Plan (1) MDD (major depressive disorder), recurrent, severe, with psychosis: Status: Acute Code(s): F33.3 - Major depressive disorder, recurrent, severe with psychotic symptoms (2) Suicide attempt: Status: Acute Code(s): T14.91XA - Suicide attempt, initial encounter Plan cv but put in 3 day notice. Offered SSRI but refused Refer to OP therapy at [facility] 5 days 05/31: Ct Rx plan. SW to contact family. 06/01: appears happy, asking for DC, denying any Sx or problems. 06/02: Pt continues to decline medication management. He is sleeping and mood appears improved. Says he feels safe and appropriate in behavior in the milieu, social and appropriate. Somewhat bizarre in thought content but no imminent safety concerns. I spent minutes with the patient and/or on the patient floor today, greater than?50% of which was spent counseling/coordinating care. Reason for contiued inpatient stay Substantial Risk for: med/psych decompensation
[2021-06-02 21:07] VITALS: BP 119/56; PULSE 67; TEMP 36.4; O2SAT 100
--- NOTE | 2021-06-02 23:21 | PC.NURSE ---
retraction of 3 day notice-pt reports having ''regrets'' about retracting 3 day notice ''I would like to be discharged tomorrow, I thought that I was supposed to be let go and I had to retract it'' offered education and support. reports that his ''mother and brother said it was ok to come home''
[2021-06-03 06:00] VITALS: BP 114/63; PULSE 65; RESP 16; TEMP 36.4; O2SAT 100
--- NOTE | 2021-06-03 13:46 | MHC.CLN ---
F/U PATIENT REPORTS THAT HE IS EATING WELL. NO NEW NUTRITION INTERVENTIONS AT THIS TIME.
--- NOTE | 2021-06-03 17:42 | HO.PSYCHPN ---
Subjective Subjective Date of Service: 06/03/21 Reason For Visit: suicide attempt Interim History: Patient seen and discussed with team. direct care staffer and SW deny having concerns about pt's mood or behavior. Patient evaluated this evening and upon interview pt reports he is doing alright, feels ready for discharge. Says he talked to his mom and little sister and his sister wants him to come back home, he is feeling ready. Sleep is perfectly fine. Mood is still described as a ray of sunshine. He denies having questions or concerns. Denies SI/SIB. Saw his aunt again today aunt today and spoke with SW today, interested in family therapy. In the milieu, patient is safe and appropriate in behavior. Denies SI/SIB/HI upon inquiry. Denies irritability or assaultive ideation. Says he feels safe. Attending Groups: Yes Review of Systems Acute medical concerns: No Medical Review of Systems: unchanged Mental Status Exam Mental Status Exam Narrative: A&O. In casual attire, good hygiene, glasses (broken), not malodorous. Poor eye contact, attentive. No Tics or Tremors. No abnormal involuntary movements. Calm, cooperative, engaged. Non-pressured speech, spontaneous with regular rate and rhythm, normal volume and prosody. No prolonged speech latency or dysarthria. Mood is ?ray of sunshine,? affect is euthymic. Currently denies SI/SIB/HI upon inquiry. Currently denies A/VH or delusional thought content. Thoughts are esoteric and somewhat bizarre, suspicion for ideations of reference but pt is not bothered by thoughts and denies thinking about anymore, says he feels safe. No known cognitive or memory impairment. Insight/ Judgment adequate. Diagnostics Vital Signs (24Hr): Vital Signs - 24 hr 06/02/21 21:07 06/03/21 06:00 Temperature 97.5 F 97.6 F Pulse Rate 67 65 Respiratory Rate 16 Blood Pressure 119/56 L 114/63 Pulse Oximetry 100 100 BMI result Body Mass Index 19.5 Labs Results: 05/28/21 20:44 05/28/21 20:44 Medications Medications Current Medications Acetaminophen (Acetaminophen 325 Mg Tablet) 650 mg PO Q6H PRN PRN Reason: Headache/Pain Mild Scale (1-3) Al Hydroxide/Mg Hydroxide (Magnesium Hydrox/Alum Hydrox 30 Ml Oral.Susp) 30 ml PO Q6H PRN PRN Reason: Heartburn/Nausea Hydroxyzine HCl (Hydroxyzine Hcl 25 Mg Tablet) 25 mg PO BEDTIME PRN PRN Reason: Anxiety Magnesium Hydroxide (Milk Of Magnesia 30 Ml Oral.Susp) 30 ml PO DAILY PRN PRN Reason: Constipation Trazodone HCl (Trazodone Hcl 50 Mg Tablet) 50 mg PO BEDTIME PRN PRN Reason: Insomnia Allergies Allergies Allergy/AdvReac Type Severity Reaction Status Date / Time No Known Allergies Allergy Unverified 01/10/20 16:36 Assessment & Plan Assessment & Plan (1) MDD (major depressive disorder), recurrent, severe, with psychosis: Status: Acute Code(s): F33.3 - Major depressive disorder, recurrent, severe with psychotic symptoms (2) Suicide attempt: Status: Acute Code(s): T14.91XA - Suicide attempt, initial encounter Plan cv but put in 3 day notice. Offered SSRI but refused Refer to OP therapy at [facility] 5 days 05/31: Ct Rx plan. SW to contact family. 06/01: appears happy, asking for DC, denying any Sx or problems. 06/02: Pt continues to decline medication management. He is sleeping and mood appears improved. Says he feels safe and appropriate in behavior in the milieu, social and appropriate. Somewhat bizarre in thought content but no imminent safety concerns. 06/03: No medications initiated, pt is feeling safe and ready for discharge, appropriate in behavior, sleeping, denies depression. Denies SI/SIB urges. Future oriented and feeling more hopeful. I spent minutes with the patient and/or on the patient floor today, greater than?50% of which was spent counseling/coordinating care. Reason for contiued inpatient stay Substantial Risk for: stable for discharge
[2021-06-03 20:48] VITALS: BP 105/59; PULSE 67; TEMP 36.6; O2SAT 98
[2021-06-04 08:05] VITALS: BP 99/57; PULSE 65; RESP 16; TEMP 36.8; O2SAT 100
--- NOTE | 2021-06-04 13:41 | P.DS_ITS ---
DS: Providers Provider Date of Service: 06/04/21 Date of admission: 05/29/21 16:50 Date of discharge: 06/04/21 Primary care physician: Jarret Sevilla MD Admitting clinician: Ping Horton Attending physician on admission: Derrick Dickens Attending physician on discharge: Derrick Dickens Discharging clinician: Ping Horton DS: Diagnosis Discharge Diagnosis (1) MDD (major depressive disorder), recurrent, severe, with psychosis: Status: Acute (2) Suicide attempt: Status: Acute DS: Medications Discharge Medications Home Medications: Home Medications Medication Instructions Recorded Confirmed No Known Home Meds 05/29/21 05/29/21 Mental Status Exam Mental Status Exam Narrative: A&O. In casual attire, good hygiene, glasses (broken), not malodorous. Poor eye contact, attentive. No Tics or Tremors. No abnormal involuntary movements. Calm, cooperative, engaged. Non-pressured speech, spontaneous with regular rate and rhythm, normal volume and prosody. No prolonged speech latency or dysarthria. Mood is ?ray of sunshine,? affect is euthymic. Currently denies SI/SIB/HI upon inquiry. Currently denies A/VH or delusional thought content. Thoughts are esoteric and somewhat bizarre, suspicion for ideations of reference but pt is not bothered by thoughts and denies thinking about anymore, says he feels safe. No known cognitive or memory impairment. Insight/ Judgment adequate. Data Data Completed and Pending Completed studies during hospitalization [Text1]: 05/28/21 05/28/21 05/28/21 20:44 20:44 20:44 WBC 7.5 RBC 4.83 Hgb 14.5 Hct 44.3 MCV 91.7 MCH 30.0 MCHC 32.7 RDW 12.1 Plt Count 190 MPV 11.0 Immature Gran % (Auto) 0.1 Neut % (Auto) 69.7 Lymph % (Auto) 23.9 Branch % (Auto) 4.7 Eos % (Auto) 1.2 Baso % (Auto) 0.4 Lymph # (Auto) 1.8 Branch # (Auto) 0.4 Eos # (Auto) 0.1 Baso # (Auto) 0.0 Abs Immat Gran (auto) 0.01 Absolute Neuts (auto) 5.2 Absolute Nucleated RBC 0.000 Nucleated RBC % (auto) 0.0 Sodium 141 Potassium 3.8 Chloride 109 H Carbon Dioxide 26 Anion Gap 10 L BUN 6 L Creatinine 0.88 Estim Creat Clear Calc 117.2 Estimated GFR > 60 Random Glucose 85 Calcium 9.2 Total Bilirubin 0.5 AST 16 ALT 8 Alkaline Phosphatase 36 L Total Protein 6.6 Albumin 4.2 Ethyl Alcohol COVID-19 ([facility]) Negative COVID-19 Clin Com See Note 05/28/21 05/29/21 20:44 12:36 WBC RBC Hgb Hct MCV MCH MCHC RDW Plt Count MPV Immature Gran % (Auto) Neut % (Auto) Lymph % (Auto) Branch % (Auto) Eos % (Auto) Baso % (Auto) Lymph # (Auto) Branch # (Auto) Eos # (Auto) Baso # (Auto) Abs Immat Gran (auto) Absolute Neuts (auto) Absolute Nucleated RBC Nucleated RBC % (auto) Sodium Potassium Chloride Carbon Dioxide Anion Gap BUN Creatinine Estim Creat Clear Calc Estimated GFR Random Glucose Calcium Total Bilirubin AST ALT Alkaline Phosphatase Total Protein Albumin Ethyl Alcohol < 10 COVID-19 ([facility]) Negative COVID-19 Clin Com See Note DS: Summary Hospital Course Hospital Course: Zak is a 25 y.o. male who carries a dx of ADHD, r/o ASD, and MDD recurrent. He presented to [facility] ED on 05/28/21 via ambulance on a Section 12a due to SI and s/p SA via asphyxiation. Per ED note, pt was found by his mom and sister at home with a wire tied around his neck. Precipitating factors included being unable to obtain a ride for work, resulting in his losing his new [employer]ODUCT [employer] job. ED provider had documented that pt had been planning out the SA for weeks, however pt adamantly denies saying this and says it was impulsive. No current psych treatment or medication. Utox positive for cannabis.? Per N eval on 05/28/21, pt was evaluated by crisis mobile unit, found in the back seat of his mom?s car crying. He identified precipitating factors as feeling like a failure due to losing his job (recently hired by [employer] but unable to complete training due to not having reliable transportation). Pt disclosed hearing voices for the last month and hearing the word all the time. mid level clinician spoke with pt?s mom, who confirmed pt has been hearing voices and self isolating.? I evaluated the pt this evening and upon interview he reports long hx of depression since adolescence. Pt says his depression comes and goes and that it is ?more a seasonal thing.? Episodes of depression can last from ?a couple days, maybe a week.? Has noticed current sx of depression started about a month ago, stating ?life has just been hard? and ?its been hard to find work.? He is unvaccinated and has limited work experience, which makes it difficult to obtain gainful employment. Sx of depression include not wanting to get out of bed. Says his appetite is good and he sleeps 9-10 hours at night. Daytime energy is low, ?some days even though I slept I?m still tired.? Pt says he struggles with some anxiety, ?I tend to overthink a lot? and he feels overwhelmed. Denies panic attacks. Denies anger. Currently denies SI and says ?I dont wanna .? States his suicidal ideation is a ?feeling that randomly pops up out of nowhere? and he feels he hit ?rock bottom? and was ?in a dark place? prior to crisis eval. For his most recent SA, pt states he pulled a wire around his neck ?to the extent that it was constricting my breathing a little? and his mom walked in and stopped him. Denies self harming behaviors. Says ?I know what I did was wrong.? Pt is currently denying psychotic sx. No hx of manic or hypomanic episodes endorsed.? I spoke with pt?s mom who reports pt has a hx of ADHD and states she believes pt is on the autism spectrum. Says at age 20 pt?s PCP also inquired if he was diagnosed with autism, however he has not had formal testing and has not hx of special education services. His mom reports she first noticed pt?s depression in adolescence and says ?his dad has been in and out of his life, he went to halfway a couple times when he was growing up, that?s jr when things started with the counseling and stuff.? Says pt has lost ?a lot of weight? in the past year, she worries about intentional restricting and says pt was overweight in childhood. States he can be verbally aggressive but denies physical aggression or property destruction.? She confirms he does sleep but will go to bed late. Has lack of daytime structure, stays in his room and plays xbox. Says he is still dependent on her and his mom has to help him with appointments, talking on the phone, and organizational tasks. Pt does not like going into stores or talking with people, he is not social at family events. Says ?he wont even buy his own clothes.? Hygiene is adequate. Per mom, yesterday pt missed work because he didnt have a ride and since it is a training week, ?if he misses that?s its and it was his dream job. That?s really what set him off.? She denies pt having hx of self harm. Says pt disclosed to her that in the past month he has been hearing ?the word ? in his head. Otherwise, denies positive sx of psychosis.? Past Psychiatric History: -Per chart, pt was diagnosed with ADHD and Agoraphobia in childhood -Hx of OP therapy when he was in the tenth grade.? -Pt reports hx of previous SI at age 19 or 20, had a plan to hang himself and says ?it randomly hit me, what the hell am I doing?? Also reports hx of suicide attempt 5-6 yrs ago by ?overdrinking,? tried to drink himself to , wanted to ?see how far I could really take it.? -Past med trials: adderall Over the course of hospitalization, pt's sleep and insight improved. He participated in psychotherapy groups. He consistently denied suicidal ideation and was able to remain safe on the unit. He was social an appropriate. Pt denies psychotic sx. He endorsed some esoteric beliefs about receiving messages from songs and looking for signs from music or friends. However, he processed his symptoms and behaviors with peers in the milieu, staff, and family/ friend supports in the community. Pt was future oriented and actively looking for work during his admission, plans to work at [employer]. Time spent discussing smoking cessation with patient: 3 to 10 minutes Status at Discharge Cognitive/behavioral status at discharge: Pt presented as alert and oriented. He was stable, calm, and cooperative. Eng aged in conversation and presented with good insight into his symptoms of depression. Reported improvement in his sx of depression and benefit from group therapy. Functional status at discharge: independent ambulation Overall status at discharge: patient is back to baseline Time Spent with Patient Time attestation: Total time spent providing and/or coordinating discharge services: Time spent: Less than 30 minutes Discharge Plan Discharge Patient Disposition: Home, Self-Care Discharge Diagnosis: MDD, recurrent, without psychosis Referrals: Rosenda Barber (therapy intake) [Other] - 06/09/21 10:00 am (In office appointment) Jarret Sevilla III, MD [Primary Care Provider] - 06/22/21 9:00 am Discharge Medications: No Action No Known Home Meds 0RF Discharge Orders: Discharge Order (Routine); Ordered 06/04/21 Ordered By: Ping Horton Diet: advance to usual diet Activity on Discharge: As tolerated Stand Alone Forms: Patient Portal Discharge page, Community Support Activity Restrictions/Additional Instructions: Take your medications as prescribed. If you were prescribed antibiotics today, it is important that you take your medication to their entirety, do not skip any doses, do not finish them early. Follow-up with your primary care provider this week. Return to the emergency department with new or worsening symptoms. In case of emergency call 911 Care Plan Goals: Continue to work on therapeutic skill building for symptoms of depression and anxiety in order to maintain stable mood. Continue to abstain from cannabis. Health Concerns: Continue to engage in good sleep hygiene and maintain healthy diet. Plan of Treatment: Follow up with outpatient therapy referrals as needed Assessment: Pt is able to maintain safety on the unit and denies suicidal ideation, urges for self harm, or assaultive ideation. He is future oriented and there are no imminent safety concerns. He reports alleviation in symptoms of depression and benefit from engaging in groups and counseling. Patient Instructions: Help Prevent Suicide (ED), Help Prevent Suicide in Older Adults (ED), Suicide Prevention (ED) Discharge Date/Time: 06/04/21 16:30
--- NOTE | 2021-06-04 13:58 | PC.NURSE ---
Zka is alert, fully oriented, pleasant and cooperative with discharge process. He denies ideation, plan or intent to harm self or others. He denies perceptual disturbance of any kind. He denies physical complaint. Pt reports that if he has thoughts of harming himself again in the future he will contact his brother, crisis and/ or present to emergency room.
== END 2021-06-04 16:30 | disposition home or self-care (01) | DRG 751 ==
LOC: HO.ED 21:09 → HO.PADLT16 05-29 17:05
PROVIDERS: Physician Assistant; Admitting Provider Psychiatry & Neurology Psychiatry; Emergency Provider Student in an Organized Health Care Education/Training Program; PCP Internal Medicine; Visit Provider Psychiatry & Neurology Psychiatry
DX: F33.3 Major depressive disorder, recurrent, severe with psychotic symptoms (principal); R45.851 Suicidal ideations; F90.9 Attention-deficit hyperactivity disorder, unspecified type; Z91.51 Personal history of suicidal behavior; Z20.822 Contact with and (suspected) exposure to COVID-19
CPT/HCPCS: 36415; 80053; 82077; 85025; 87635; 93005; 99285